=== PATIENT | female | born 1985 | race Caucasian/White ===

== ENCOUNTER 2022-01-21 08:05 | Emergency (ER) | payer MEDICAID, OTHER ==
[~2022-01-21] VITALS: Ht 162.6 cm; Wt 88.5 kg
[~2022-01-21 08:05] MED LIST: IBUP100S69
[2022-01-21 08:07] VITALS: BP 126/75
--- NOTE | 2022-01-21 08:14 | NUR ---
ambulated to bed 9 with steady gait
[2022-01-21] MEDS ORDERED: KETOROLAC 30 MG/ML VIAL IM ONE (08:20)
--- NOTE | 2022-01-21 08:34 | NUR ---
Ultrasound at bedside.
--- NOTE | 2022-01-21 08:56 | NUR ---
37F presents to ED with c/o left sided abd pain rad to left lower back x3days. Pt reports stabbing like, 8/10 pain that worsens during inspiration, 1 episode of diarrhea this morning, last took ibuprofen this morning with no relief. Denies N/V, fevers, chills, UTI symptoms.
[2022-01-21] MEDS ORDERED: CYCL-711 PO (08:59)
[2022-01-21] MEDS ORDERED: IBUP-2213 PO (08:59)
[2022-01-21] MEDS ORDERED: LID5T TP (08:59)
[2022-01-21 09:52] LABS: BASOPHILS # (AUTO) 0.1 K/uL (0.00-0.22); BASOPHILS % (AUTO) 0.8 % (0.0-2.0); EOSINOPHILS # (AUTO) 0.2 K/uL (0-0.4); EOSINOPHILS % (AUTO) 2.4 % (0.0-4.0); HEMATOCRIT 35.7 % (36-48); HEMOGLOBIN 12.1 g/dL (12.0-16.0); LYMPHOCYTES # (AUTO) 2.7 K/uL (2.5-16.5); LYMPHOCYTES % (AUTO) 32.1 % (20.5-51.1); MEAN CORPUSCULAR HEMOGLOBIN 30 pg (27-31); MEAN CORPUSCULAR HGB CONC 34 g/dL (33-37); MONOCYTES # (AUTO) 0.6 K/uL (0.8-1.0); MONOCYTES % (AUTO) 6.7 % (1.7-9.3); NEUTROPHILS # (AUTO) 4.8 K/uL (1.8-7.7); PLATELET COUNT (AUTO) 336 K/uL (140-450); RED BLOOD CELL COUNT(AUTO) 4.05 MIL/uL (4.20-5.40); RED CELL DISTRIBUTION WIDTH 13.3 % (11.6-13.7); WHITE BLOOD COUNT (AUTO) 8.3 K/uL (4.8-10.8)
[2022-01-21 10:06] VITALS: BP 106/68
[2022-01-21 10:28] LABS: ALBUMIN 3.5 g/dL (3.4-5.0); CARBON DIOXIDE 26.2 mmol/L (21-32); CREATININE 0.6 mg/dL (0.6-1.3); TOTAL BILIRUBIN 0.2 mg/dL (0.0-1.0)
[2022-01-21 10:41] LABS: ANION GAP 11.8 (8-16)
--- NOTE | 2022-01-21 10:49 | NUR ---
Patient discharged with v/s stable. Written and verbal after care instructions about Acute flank pain, muscle strain given and explained. Patient alert, oriented and verbalized understanding of instructions. Ambulatory with steady gait. All questions addressed prior to discharge. ID band removed. Patient advised to follow up with PMD. Rx of Flexeril, Ibuprofen, and Lidocaine Hyd given. Patient educated on indication of medication including possible reaction and side effects. Opportunity to ask questions provided and answered.
== END 2022-01-21 10:49 | disposition home or self-care (01) ==
LOC: MED 08:05
DX: S39.011A Strain of muscle, fascia and tendon of abdomen, initial encounter (principal); R42 Dizziness and giddiness; R50.9 Fever, unspecified; Z79.899 Other long term (current) drug therapy; Z98.890 Other specified postprocedural states; X58.XXXA Exposure to other specified factors, initial encounter; Y93.89 Activity, other specified; Y92.89 Other specified places as the place of occurrence of the external cause; Y99.8 Other external cause status
CPT/HCPCS: 36415; 76770; 80053; 81025; 83690; 85025; 96372; 99284; J1885; Q0092